=== PATIENT | female | born 1960 | race Native Hawaiian/Other Pacific Islander ===

== ENCOUNTER 2018-03-12 15:08 | Outpatient (CLI) | payer OTHER | END 2018-03-12 15:09 | disposition home or self-care (01) | LOC: SC 15:08 | PROVIDERS: ATTEND Nurse Practitioner Family | DX: G47.33 Obstructive sleep apnea (adult) (pediatric) (principal) | CPT/HCPCS: 99212; 99214 ==

== ENCOUNTER 2021-03-21 14:07 | Outpatient (CLI) | payer OTHER ==
--- NOTE | 2021-03-21 16:32 | SLEEP CARE CONSULTATION ---
Information from patient questionnaire entered by Karissa Kam. I have reviewed and concur with the information entered by Karissa Kam. This document represents the service I personally performed and the decisions made by me, Miki Cherry MD, [facility]. History of Present Illness Service Date and Time: 03/21/2021 1407 Reason for Visit: New patient, Previously diagnosed sleep apnea (very severe - AHI - 46.6), sleep apnea on CPAP therapy ([facility] - no longer giving supplie s), Re-establish care (last seen 2017) Chief Complaint: reports: Other (been 2-3 years since last seen) Snores at night: Yes Observed to quit breathing while asleep: No Sleeps alone due to snoring: No Number of times waking at night: 1 Reasons for waking at night: reports: Bathroom Toss, Turn, or Twitch while sleeping: Yes Recalls having dreams: No Usually gets out of bed at: 8:00 am Feels refreshed in the morning: Yes Morning headache: No Sleepy or fatigued during the day: No Ever fallen asleep while driving: No Takes day naps: Yes Dreams during day naps: No Prior sleep studies: Yes Year and Where: 2014 - [facility] Type of Sleep Study: Polysomnography Additional HPI information: HPI: Ms. Jin returned today for follow up of nasal CPAP therapy. She was diagnosed to have severe obstructive sleep apnea-hypopnea syndrome. The patient gets her supplies from [facility] for the equipment and was fitted with a nasal mask. She reports using the device nightly and all through the night. The compliance report shows usage in 176 nights out of the past 180 nights, averaging 7.4 hours a night. She complained of no particular problem with the device such as soreness on the face, dry nose, epistaxis, nasal congestion or headache. She thinks that the pressure of 13 cmH2O is comfortable. On the CPAP therapy she notices improvement in her sleep quality, and that she wakes up feeling fresher in the morning and more awake/alert during the day. The [place] Sleepiness Scale score 6. Her notices no snore at all. The average residual AHI is 0.7; and average time in large leak per day is 2 minutes. - Parasomnia Symptoms Ever been unable to move upon waking from sleep: No Walks in sleep: No Talks in sleep: No Ever acted out dreams in sleep: No Ever felt weak in the knees when startled or emotional: No Bothered by creepy, crawly, restless sensations in legs: Yes Problems with memory or concentration: No CPAP Compliance Data - Data Reviewed with Patient Average duration of nightly device use: 7 hr 24 min Compliance rate %: 96.1 (180 days) Current pressure setting (cmH2O): 13 Humidity settin Heated hose settin Average residual AHI: 0.7 Average large leak: 2 min 45 sec Subjective Initial [place] Sleepiness Scale score: 6 (in 2015) Current [place] Sleepiness Scale score: 5 Past Medical History Past Medical History: reports: Hypothyroidism Social History 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 Patient is and lives in [place]. Have you smoked in the past 12 months: Yes Cigarettes per day (20/pack): 10 Years of smokin Smoking Pack Years: 20.0 Alcohol use: No Caffeine use: Yes Caffeine amount and frequency: 1 cup once a day Family History Family history of sleep disordered breathing: No Allergies and Home Medications Drug allergies reviewed: Yes Home medication list reviewed: Yes Review of Systems Review of systems same as previous: Yes Cardiovascular: reports: high blood pressure, leg or foot swelling Urinary: reports: incontinence Ear/Nose/Throat: reports: dry mouth/throat Endocrine: reports: thyroid disease Physical Exam Vital signs obtained and entered by: Dr. Cherry Blood Pressure: 130/80 Heart Rate: 75 O2 Saturation: 99 Height: 5 ft 3 in Weight: 242 lb Body Mass Index: 42.8 BMI Classification: Morbidly Obese Neck circumference: 16 Impression and Plan IMPRESSION: 1. Obstructive Sleep Apnea-Hypopnea Syndrome, severe (AHI was 46.6 in 2015), with the patient continuing to do well on nasal CPAP therapy. She has excellent compliance and significant clinical improvement. The current pressure appears effective and comfortable. Overall, she is very satisfied with treatment and plans to continue with it long-term. Because her CPAP is now older than the useful life of 5 years and is being recalled, I will order the patient a new one and make it an autoCPAP set between 8 and 13 cmH2O. PLAN: 1. Prescription made for an autoCPAP, heated humidifier, and related supplies. 2. Try to lose weight 3. Return for follow up after one month of using the CPAP. Prescriptions: Auto CPAP Follow up recommended for: Weight management Visit Type: In Office Time Spent with Patient (minutes): 15 Provider Statement: I spent 100% of the Face to Face Visit with the patient with greater than 50% spent counseling the patient and coordination of care.
[2021-03-21 16:33] VITALS: BP 130/80
== END 2021-03-21 14:08 | disposition home or self-care (01) ==
LOC: SC 14:07
PROVIDERS: ATTEND Internal Medicine Pulmonary Disease
DX: G47.33 Obstructive sleep apnea (adult) (pediatric) (principal); E66.01 Morbid (severe) obesity due to excess calories; Z68.41 Body mass index [BMI] 40.0-44.9, adult
CPT/HCPCS: 99202; 99212

== ENCOUNTER 2022-01-26 12:52 | Outpatient (CLI) | payer OTHER ==
[2022-01-26 13:35] VITALS: BP 145/75
--- NOTE | 2022-01-26 13:35 | SLEEP CARE CONSULTATION ---
Information from patient questionnaire entered by Benoit Vegas MA. I have reviewed and concur with the information entered by Benoit Vegas MA. This document represents the service I personally performed and the decisions made by , Vaishali Ferrell ARNP. History of Present Illness Service Date and Time: 01/26/2022 1252 Previous diagnosis: Severe, Obstructive Sleep Apnea-Hypopnea Syndrome AHI: 46.6 (in 2014) Reason for follow up: other (10 MONTH F/U, ?[employer] [facility], [facility]IAN[facility], CORTEZ 06/06/2015, RX? ) Equipment type: CPAP Equipment obtained from: [facility] (getting supplies but needs new prescription) Mask style: Nasal (over the nose) Backup mask available: Yes (old mask) Last cushion change: 2 days ago Prior sleep studies: Yes Year and Where: 2014 - [facility] Type of Sleep Study: Polysomnography HPI additional information: MARINO BURNETT was diagnosed to have severe, AHI 46.6, obstructive sleep apnea-hypopnea syndrome and returned today for CPAP therapy 10 month follow-up. Sleep Study - Results Type of Sleep Study: Polysomnography Prior sleep studies: Yes Year and Where: 2014 - [facility] CPAP Compliance Data - Data Reviewed with Patient Average duration of nightly device use: 7 HOURS 11 MINUTES Compliance rate %: 87.8 (90 days) Current pressure setting (cmH2O): 13 Average residual AHI: 0.6 Average large leak: 14 SECONDS Subjective Patient concerns: reports: dry mouth, nose, throat. denies: aerophagia, mask discomfort, air blowing in eyes, mask leak noise, condensation in mask/hose, nasal congestion, epistaxis, other Observed to snore while using device: No Current pressure setting perceived as: too high (was in [place] for last 2 months, only felt too high then) On therapy, patient: reports: sleeping better, awakening more refreshed, being more awake and alert during the day, more rested overall. denies: drowsiness while driving Initial [place] Sleepiness Scale score: 6 (in 2014) Current [place] Sleepiness Scale score: 4 (01/26/2022) Allergies and Home Medications Home medication list reviewed: Yes (no changes) Review of Systems Review of systems same as previous: Yes (no changes) Physical Exam Vital signs obtained and entered by: NATALIIA ANTHONY Blood Pressure: 145/75 (PULSE 54, RESP 18, LEFT) Cuff size: wrist Heart Rate: 63 O2 Saturation: 98 Height: 5 ft 3 in Weight: 240 lb (CLOTHES) Body Mass Index: 42.5 BMI Classification: Morbidly Obese Impression and Plan 1. Obstructive Sleep Apnea-Hypopnea Syndrome, severe, with good treatment compliance and excellent apnea control. On CPAP therapy, the patient has better sleep quality and is more rested overall. Patient states the pressure felt too high when she was in [place] the last two months. She has been back in town for 2 days but cannot say if it feels less high. I will adjust her pressure to 8-13 cmH2O for patient comfort. Patient states [facility]ainer is asking for an updated prescription so that she can get supplies. Last time she was here Dr. Ojeda did appear to be ordering a new device but she states she never received one. Her current device is a Respironics REMstar 60 series that was last updated in 2014. The patients CPAP is over 5 years old and of reasonable use. Thus, the CPAP will be updated. The new CPAPs also have a better humidity system which could assist control of patients dryness symptoms. A [facility] prescription will be made. Compliance guidelines for new device and follow up discussed. Patient's apnea severity and rationale for treatment to reduce apnea, improve sleep quality and reduce cardiovascular and cerebrovascular events was reviewed. Patient was encouraged to lose weight to reduce apneas and improve her overall health. * Update machine * Update supplies as needed * Change auto CPAP pressure to 8-13 cmH2O * Notify me if snoring with mask or feeling that the pressure is too much or too little * Attempt to lose weight * Call this office if any problems using CPAP * Return for follow up one month after obtaining new device, or sooner if concerns arise Counseling Topics: Spare mask, Weight loss health impact Visit Type: In Office Time Spent with Patient (minutes): 24 Provider Statement: I spent 100% of the Face to Face Visit with the patient with greater than 50% spent counseling the patient and coordination of care.
== END 2022-01-26 12:53 | disposition home or self-care (01) ==
LOC: SC 12:52
PROVIDERS: ATTEND Nurse Practitioner Family
DX: G47.33 Obstructive sleep apnea (adult) (pediatric) (principal); E66.01 Morbid (severe) obesity due to excess calories; Z68.41 Body mass index [BMI] 40.0-44.9, adult
CPT/HCPCS: 99212; 99213